=== PATIENT | female | born 1960 | race Hispanic/Latino ===

== ENCOUNTER 2022-09-06 08:07 | Day surgery (SDC) | payer OTHER ==
[2022-09-05 12:51] LABS: Potassium 3.8 mEq/L (3.5-5.1)
[2022-09-06] MEDS ORDERED: Ringers Lactate 1,000 ML IV ONE (08:30)
[2022-09-06] MEDS ORDERED: propofoL 200 MG/20 ML VIAL IV ONE (10:23)
[2022-09-06] MEDS ORDERED: EPHEDRINE SULF 50 MG/ML VIAL ONE (10:23)
[2022-09-06] MEDS ORDERED: LIDOCAINE 1% MPF 5 ML VIAL ONE (10:23)
[2022-09-06 11:07] VITALS: O2SAT 100
[2022-09-06 11:16] VITALS: BP 139/77; TEMP 97
--- NOTE | 2022-09-06 14:49 | EKG ---
Test Date: 2022-09-05 Test Time: 12:25:33 Instructor Painting: LUCAS MEASUREMENT RESULTS: Intervals: Rate: 61 LA: 140 QRSD: 76 QT: 424 QTc: 426 [place]: P: 42 LA: 140 QRS: 56 T: 48 INTERPRETIVE STATEMENTS: Normal sinus rhythm Normal ECG No previous ECG available for comparison Electronically Signed On 09-06-22 14:44:46 CDT by Zane Parker
== END 2022-09-06 11:32 | disposition home or self-care (01) ==
LOC: OR 08:07
PROVIDERS: ATTEND Surgery
PROC: 0DBN8ZX Excision of Sigmoid Colon, Via Natural or Artificial Opening Endoscopic, Diagnostic (ICD-10-PCS; principal; 2022-09-06 10:00)
DX: K62.89 Other specified diseases of anus and rectum (principal); K62.5 Hemorrhage of anus and rectum; K64.8 Other hemorrhoids
CPT/HCPCS: 93005; 80048; 36415; 88305; 45380; J2704; J2001; J7120